=== PATIENT | female | born 1950 | race Caucasian/White ===

== ENCOUNTER 2022-03-16 18:08 | Emergency (ER) | payer MEDICARE, SELFPAY ==
--- NOTE | ~2022-03-16 | XR_ITS ---
EXAM: XR wrist RT min 3V DATE: 03/16/2022 18:49 HISTORY: right wrist pain after heavy lifting/radial side pain . COMPARISON: None available. FINDINGS: Decreased mineralization. No fracture or dislocation. No lytic or blastic lesion. Moderate degenerative triscaphe joint change. No erosion or periosteal change. Soft tissues within normal salomon its. IMPRESSION: No acute osseous finding in the right wrist. Reviewed, dictated and finalized at location [facility].
[2022-03-16 18:16] VITALS: BP 139/85; PULSE 73; RESP 18; TEMP 36.7; O2SAT 98
--- NOTE | 2022-03-16 18:41 | ED.EXTPRO ---
HPI - Extremity Problem General Chief complaint: Extremity Problem,Nontraumatic Stated complaint: Rt Wrist Pain Time Seen by Provider: 03/16/22 18:41 History of Present Illness HPI Narrative: Mariama Gibbons is a 71 yo female with a PMH of high cholesterol, high blood pressure, glaucoma, anxiety, who was using a last trimmer today and is complaining of pain in the right wrist with movement. She has point tenderness on the medial side of her wrist and lower hand below her fifth metatarsal; denies any direct trauma Related Data Home Medications Medication Instructions Recorded Confirmed latanoprost (PF) 0.005 % eye drops 1 drop ophthalmic (eye) QPM 11/12/19 03/16/22 vitamins A,C,L-fria-laaqfm 14,320 1 cap PO BID 11/12/19 03/16/22 unit-226 mg-200 unit capsule (ICaps AREDS) aspirin 81 mg tablet,delayed 81 mg PO DAILY 05/12/20 03/16/22 release (Adult Low Dose Aspirin) multivitamin with calcium and 200 mcg PO .every day 05/12/20 03/16/22 minerals-folic acid 200 mcg tablet (One-A-Day Proactive 65 Plus) Allergies Allergy/AdvReac Type Severity Reaction Status Date / Time ciprofloxacin Allergy Mild Nausea Verified 03/16/22 18:20 Review of Systems Review of Systems: CONSTITUTIONAL: Denies fever, chills, sweats. EYES: Denies visual changes, redness, discharge. ENT: Denies rhinorrhea, congestion, sore throat, otalgia. CARDIOVASCULAR: Denies chest pain, palpitations, edema. RESPIRATORY: Denies dyspnea, wheezing, cough GASTROINTESTINAL: Denies abdominal pain, nausea, vomiting, diarrhea. GENITOURINARY: Denies dysuria, hematuria, abnormal discharge SKIN: Denies rash or itching. NEUROLOGIC: Denies numbness, or focal weakness. PSYCHIATRIC: Denies anxiety or depression. Right wrist pain PMFSH Past Medical History Medical History Anxiety Essential (primary) hypertension Hyperlipidemia Vitamin D deficiency, unspecified Family History Family History Sibling Patient's sister is in good health Family history of malignant neoplasm of thyroid Mother Family history of malignant neoplasm Social History Social History Smoking status: Never smoker Second hand tobacco smoke exposure: No Alcohol intake: current Drinks per week: 5 Substance use: never Substance use type: does not use Comments At time of signature, I agree with nursing past medical, surgical, social and family history. There is no relevant family history pertinent to the presenting complaint. Exam Narrative: GENERAL: This is a well-nourished, well-developed patient, in mild distress. HEAD: normocephalic, atraumatic. EYES: Sclera clear/white. Vision is grossly intact. EARS: External ears normal,. Hearing grossly intact. NOSE: External nose normal without nasal discharge, nares without redness, no rhinorrhea. THROAT: Mucous membranes moist, NECK: Neck supple, CARDIOVASCULAR: Regular rate and rhythm without murmurs, gallops, or rubs. RESPIRATORY: Clear to auscultation. Breath sounds equal bilaterally. No wheezes, rales, or rhonchi. GASTROINTESTINAL: not done SKIN: warm, intact with no suspicious lesions or rash, good texture and turgor. NEURO: awake, alert, and oriented to person, place and time. There were no obvious focal neurologic abnormalities. Steady gait EXTREMITIES: Normal range of motion. Right wrist pain is able to pronate,Splay fingers , good finger touch, and with attempts to flex wrist BACK: Nontender without deformity Course Course Emergency Course: Patient here with right wrist pain if using hedge tremor today Right wrist x-ray-no osseous finding on right wrist, decreased mineralization, no fracture dislocation, no lytic or blastic lesion. Moderate degenerative triscaphe the joint change soft tissue within normal limits Wrist splint recommended from retail
== END 2022-03-16 19:06 | disposition home or self-care (01) ==
PROVIDERS: Emergency Provider Nurse Practitioner; PCP Internal Medicine
DX: S63.501A Unspecified sprain of right wrist, initial encounter (principal); T14.90XA Injury, unspecified, initial encounter; M25.531 Pain in right wrist; E78.5 Hyperlipidemia, unspecified; I10 Essential (primary) hypertension; H40.9 Unspecified glaucoma; F41.9 Anxiety disorder, unspecified; Z79.82 Long term (current) use of aspirin; E55.9 Vitamin D deficiency, unspecified
CPT/HCPCS: 73110; 99213; G0463

== ENCOUNTER 2022-03-29 07:30 | Outpatient (CLI) | payer MEDICARE, SELFPAY ==
--- NOTE | 2022-04-18 19:47 | WPDHOMESLEEP ---
Sleep Study - Home Unattended Date of Study: 03/29/22 Ordering Provider: Nic Webb PA-C Interpreting Provider: Catrachita Zuniga, DO Home Sleep Study Type: Apnea Link Air Height: 1.68 m Weight: 50.802 kg Body Mass Index: 18.1 Neck Circumference (inches): 15 [place]: 6 Reason for Sleep Study Daytime hypersomnia Sleep History The patient is a 71-year-old female with hypertension, depression and glaucoma that had a sleep study ordered by her primary care for evaluation of Sleep apnea. The patient denies awakening from sleep short of breath. She occasionally awakens at night with heartburn, belching or cough. She frequently snores and is occasionally loud enough that others complain. She frequently has trouble sleeping when she has a cold. She denies waking up gasping for air throughout the night. She denies having breathing problems at night observed by herself or others. She denies sweating excessively at night. She denies having heart palpitations or irregular heartbeats during the night. She occasionally falls asleep during the day but never while driving. She denies sleep paralysis, cataplexy and hypnagogic / hypnopompic hallucinations. She is currently retired. She rarely has nightmares. She rarely remembers her dreams. She frequently has thoughts racing through her mind. She frequently feels sad or depressed. She frequently has anxiety. She denies having muscular tension. She rarely notices parts of her body jerk. She rarely kicks during the night. She denies having crawling and aching feelings in her legs as well as leg pain during the night. She constantly grinds her teeth during sleep but never awakens with morning jaw pain. She is occasionally bothered by pain during the day but rarely awakened by pain during the night. She frequently wakes up feeling stiff in the morning. She rarely wakes up with sore achy muscles. She occasionally wakes up with pain in the neck, spine or joints. She goes to bed between 930-10 p.m. on both weekdays and weekends. The M mount of time it takes her to fall asleep is variable. She wakes up anywhere from 1-4 times per night for unknown reasons. She wakes up between 6-7 a.m. on both weekdays and weekends. She will spend 15-30 minutes in bed after waking up in the morning. She currently lives with her . She does not consume any caffeinated beverages within 2 hours of bedtime. She does not engage in physical exercise before bedtime. She will watch television before falling asleep. She will take unintentional naps in the evening but they are not refreshing. She drinks 2 cups of coffee and an occasional glass of tea per day. She rarely drinks alcohol. She denies tobacco and recreational drug use. [facility] Past Medical History Medical History Anxiety Essential (primary) hypertension Hyperlipidemia Vitamin D deficiency, unspecified Family History Family History Sibling Patient's sister is in good health Family history of malignant neoplasm of thyroid Mother Family history of malignant neoplasm Social History Social History Smoking status: Never smoker Second hand tobacco smoke exposure: No Alcohol intake: current Drinks per week: 5 Substance use: never Substance use type: does not use Medications Home Medications Medication Instructions Recorded Confirmed Type latanoprost (PF) 0.005 % eye drops 1 drop ophthalmic (eye) QPM 11/12/19 03/16/22 History aspirin 81 mg tablet,delayed 81 mg PO DAILY 05/12/20 03/16/22 History release (Adult Low Dose Aspirin) multivitamin with calcium and 200 mcg PO .every day 05/12/20 03/16/22 History minerals-folic acid 200 mcg tablet (One-A-Day Proactive 65 Plus) atorvastatin 10 mg tablet 10 mg PO DAILY #90 tabs 12/27/21 03/16/22
[2022-04-18 20:02] VITALS: BMI 18.1
== END 2022-04-18 11:17 | disposition home or self-care (01) ==
LOC: ANHCSM 07:31
PROVIDERS: PCP Internal Medicine; Visit Provider Physician Assistant
DX: G47.10 Hypersomnia, unspecified (principal); G47.9 Sleep disorder, unspecified
CPT/HCPCS: 95806

== ENCOUNTER 2024-01-29 09:52 | Outpatient (CLI) | payer MEDICARE, SELFPAY ==
--- NOTE | ~2024-01-29 | XR_ITS ---
Right Shoulder Technique: AP and axillary views were obtained. Clinical History: Pain Findings: No fracture or dislocation is seen. Osseous alignment is anatomic. The glenohumeral and acr omioclavicular joint spaces are preserved. Soft tissues are unremarkable. Impression: Unremarkable right shoulder radiographs. Reviewed, dictated and finalized at [facility]. Impression: Unremarkable right shoulder radiographs.
== END 2024-01-29 09:53 | disposition home or self-care (01) ==
LOC: ANHIMG 09:54
PROVIDERS: PCP Internal Medicine; Visit Provider Internal Medicine
DX: M25.511 Pain in right shoulder (principal)
CPT/HCPCS: 73030

== ENCOUNTER 2024-03-25 11:00 | Outpatient (RCR) | payer MEDICARE, SELFPAY ==
--- NOTE | 2024-02-07 17:05 | OPREHPOC ---
Outpatient Therapy Plan of Care This is a Multidisciplinary Plan of Care that may contain components documented by all disciplines (PT, OT, and ST.) PT Goal 1 Goal Pt will be independent in HEP Pt will verbalize understanding of diagnosis and prognosis Target Visit 5 PT Problem 2 PT Problem #2 Pain PT Goal 1 Goal Pt will report greatest pain level at 3/10 or less to improve ADLs and activities Target Visit 10 PT Goal 2 Goal Pt will report resolution of pain to return to PLOF Target Visit 20 PT Problem 3 PT Problem #3 Impaired Range of Motion PT Goal 1 Goal Pt will demo AROM right shoulder flexion 0-150 Target Visit 10 PT Goal 2 Goal Pt will demo active ROM of right shoulder in all planes WFL without pain Target Visit 20
--- NOTE | 2024-02-07 17:06 | PTOPEVAL1 ---
Assessment and note entered by Shefali Palma, PT Evaluation Information Assessment Status Evaluation Diagnosis pain in right shoulder Therapy conditions abnormal posture stiffness in right shoulder weakness Onset couple months Subjective Information Reports after lifting heavy w/c in and our of SUV several times the shoulder started hurting. This was not immediate, no immediate pain or popping or snapping at the time. Now will pop/snap all kinds of funny things . Golfs regularly and currently cannot due to shoulder pain Difficulty sleeping when laying on right side Right hand dominant Reported Pain Level Pain Score 3: Self Report Assessment PT Clinical Summary Pt presents with c/o right shoulder pain that began recently with repeated lifting of heavy wheelchair into her vehicle. Evaluation shows decreased ROM shoulder joint, abnormal postures, and special testing suggestive of impingement and irritation of the rotator cuff structures with possible labral involvement. Because of her pain and deficits, she has difficulty/inability to perform recreational activities and even some of her ADLs. Pt will benefit from physical therapy in order to address her deficits, improve pain, and return her to her PLOF. Plan of Care Interventions Electrical Stimulation,Hot Pack/Cold Pack,Manual Therapy,Neuro Re-education,Patient/Caregiver Educati,Therapeutic Activities,Therapeutic Exercise,Self-Care/Home Management,Ultrasound PT Services Indicated Yes Treatment Frequency and 1-2x weekly x 10 visits Duration These treatments will address the objective and functional deficits as defined above. The patient will be advanced safely and appropriately in order for the patient to progress towards his/her prior level of function. Additional exercises will be introduced and as well as a comprehensive home exercise program upon discharge, if needed, ?to ensure carryover of functional gains achieved in the clinic. This treatment plan has been reviewed and agreement upon by the patient.
--- NOTE | 2024-02-16 15:00 | PCPTNOTE ---
Rehab department called & cancelled scheduled appointment this date due to staffing shortage.
--- NOTE | 2024-03-26 16:24 | PTOPPROGNS ---
Assessment and note entered by Jose Calvert SPT Evaluation Information Assessment Status Re-evaluation Diagnosis pain in right shoulder Onset couple months Subjective Information pt states that ROM has improved and some activities are easier. The pain is still in the anterior shoulder and there is a pop and click with pain when reaching quickly. Pt states when she reaches to turn off lamp at night she gets sharp pain in anterior shoulder and shoulder pain effects her ability to sleep on her side. Pt continues to have pain with ADLs primary taking off shirt, she has to use one arm at a time and uses L arm when doing chores. Assessment PT Clinical Summary Pt reports to physical therapy on her 10th visit for a re-evaluation. Pt states that she feels physical therapy has helped with ROM that helps her with some activities but she has not noticed improvements in pain. Her QUICKDASH improved by 15 % displaying a moderate gain in function but pt is still concerned with continued pain and a potential of muscular/tendon tears. Pt remains positive on special test such as empty can, painful arch, Solis Mahesh and speeds all with pain provocation in the anterior shoulder. Strength and ROM slightly improved but is still painful in end range of all planes. After completion of objective data the results were discussed and educated with pt. Pt was recommended to schedule a follow up with PCP and get referral for orthopedic physician to discuss options such as further imaging (MRI) and injections in the shoulder for pain management. Pt was advised to continue HEP and would benefit from additional physical therapy once pt consults with orthopedic physician. If patient does not return in 30 days, this will serve as her discharge note from therapy services. These treatments will address the objective and functional deficits as defined above. The patient will be advanced safely and appropriately in order for the patient to progress towards his/her prior level of function. Additional exercises will be introduced and as well as a comprehensive home exercise program upon discharge, if needed, ?to ensure carryover of functional gains achieved in the clinic. This treatment plan has been reviewed and agreement upon by the patient.
== END 2024-04-17 09:57 | disposition home or self-care (01) ==
LOC: ANHHIPT 11:00
PROVIDERS: PCP Internal Medicine; Visit Provider Internal Medicine
DX: M25.511 Pain in right shoulder (principal)
CPT/HCPCS: 97014; 97032; 97035; 97110; 97112; 97140; 97161; 97164; 97750; G0283

== ENCOUNTER 2024-04-17 13:34 | Outpatient (CLI) | payer MEDICARE, SELFPAY ==
--- NOTE | ~2024-04-17 | XR_ITS ---
EXAMINATION: XR lg joint inject/asp w image DATE: 04/17/2024 14:13 INDICATION: Adhesive capsulitis of right shoulder. TECHNIQUE: A time-out was performed to verify the patient's name, date of , and procedure to b e performed. The procedure including the risks, benefits, and alternatives was discussed with the pat ient. Risks discussed included bleeding and infection. The patient understood the risks and agreed to proceed. The skin overlying the right glenohumeral joint was prepped and draped in usual sterile fa shion. Anesthetic was administered with 1% lidocaine subcutaneously. A 22 G needle was advanced und er fluoroscopic guidance into the joint. Subsequently, injectate consisting of 4 mL 1% lidocaine and 1 mL 80 mg/mm Depo-Medrol was instilled. The needle was removed and the entry site was cleaned and dressed. There were no immediate complications. Fluoroscopy exposure time was 0.1 minutes. The total number of images was 1. FINDINGS: Real-time fluoroscopy demonstrates the needle in the right glenohumeral joint. Patient's pa in prior to procedure:6/10. Patient's pain following the procedure: 0/10. IMPRESSION: 1. Fluoroscopy guided right glenohumeral joint injection of local anesthetic and steroid with decreas e in the patient's presenting pain. Reviewed, dictated and finalized at location [facility]. IMPRESSION: 1. Fluoroscopy guided right glenohumeral joint injection of local anesthetic an d steroid with decrease in the patient's presenting pain.
== END 2024-04-17 13:35 | disposition home or self-care (01) ==
LOC: ANHIMG 13:38
PROVIDERS: PCP Internal Medicine; Visit Provider Orthopaedic Surgery
DX: M75.01 Adhesive capsulitis of right shoulder (principal)
CPT/HCPCS: 20610; 77002; J1010

== ENCOUNTER 2024-06-06 14:06 | Outpatient (CLI) | payer MEDICARE, SELFPAY ==
--- NOTE | ~2024-06-06 | MR_ITS ---
EXAMINATION: MR shoulder RT wo con DATE: 06/06/2024 14:57 INDICATION: Adhesive capsulitis of unspecified shoulder. Right shoulder pain. TECHNIQUE: Magnetic resonance imaging (MRI) of the right shoulder was performed without intravenous c ontrast. Sequences included axial PD-weighted FS FSE, coronal oblique PD-weighted FS FSE and T2-weigh shree FS FSE, and sagittal oblique T2-weighted FS FSE and T1-weighted FSE. COMPARISON: Right shoulder radiographs 01/29/2024 FINDINGS: Coracoacromial arch: The acromion undersurface is curved in morphology (type II). There is moderate acromioclavicular join t osteoarthritis including inferiorly directed osteophytes. There is mild subacromial/subdeltoid burs itis. Rotator cuff: There is mild supraspinatus and infraspinatus tendinopathy. Teres minor tendon is normal. There is a small interstitial tear of subscapularis tendon superiorly. There is no asymmetric fatty atrophy of t he rotator cuff muscle bellies. Biceps tendon and glenoid labrum: Biceps tendon is in bicipital groove. There is moderate intra-articular biceps tendinopathy. There is a tear of the superior labrum from 11:00 to 1:00 (SLAP tear). Fluid: There is a small glenohumeral joint effusion. Bones/cartilage: There is deep partial-thickness cartilage loss of superior glenoid. There is deep partial-thickness c artilage loss of humeral head. IMPRESSION: 1. Small interstitial tear of subscapular tendon superiorly. 2. Moderate glenohumeral joint chondrosis. SLAP tear. 3. Moderate acromioclavicular joint osteoarthritis. 4. Small glenohumeral joint effusion. 5. Moderate intra-articular biceps tendinopathy. 6. Mild subacromial/subdeltoid bursitis. Reviewed, dictated and finalized at location A.
== END 2024-06-06 14:07 | disposition home or self-care (01) ==
LOC: ANHIMG 14:09
PROVIDERS: PCP Internal Medicine; Visit Provider Physician Assistant Surgical
DX: M19.011 Primary osteoarthritis, right shoulder (principal); M25.411 Effusion, right shoulder; M75.51 Bursitis of right shoulder
CPT/HCPCS: 73221